=== PATIENT | male | born 1955 | race Caucasian/White ===

== ENCOUNTER 2022-05-05 06:58 | Day surgery (SDC) | payer MEDICARE ==
[2022-04-29 08:30] VITALS: BMI 33.0
[~2022-05-05 06:58] MED LIST: ACETAMINOPHEN TAB 500 MG TAB PO PRN; HEPARIN SODIUM,PORCINE/PF 5,000 UNIT/0.5 ML SYRINGE SQ PRN
[2022-05-05 07:43] VITALS: TEMP 97
[2022-05-05] MEDS ORDERED: ONDANSETRON 4 MG/2 ML VIAL ONE (07:59)
[2022-05-05] MEDS ORDERED: LACTATED RINGERS 1,000 ML IV ONE ×2 (08:00→09:38)
[2022-05-05] MEDS ORDERED: DEXAMETHASONE SOD PHOSPHATE 4 MG/ML 1 ML VIAL IVP ONE (08:16)
[2022-05-05] MEDS ORDERED: MIDAZOLAM 2 MG/2 ML VIAL IVP ONE (08:18)
[2022-05-05] MEDS ORDERED: fentaNYL (PF) 50 MCG/1 ML VIAL IVP ONE (08:18)
[2022-05-05] MEDS ORDERED: HEPARIN SODIUM,PORCINE 5,000 UNIT/ML 1 ML VIAL SQ ONE (08:22)
--- NOTE | 2022-05-05 08:32 | P.GSHP ---
History of Present Illness H&P Date: 05/05/22 Chief Complaint: Right inguinal hernia This is a 66-year-old male who's developed a large right inguinal hernia. Patient presents today for laparoscopic robotic-assisted repair. Past Medical History Past Medical History: Cancer Additional Past Medical History / Comment(s): hx varicose veins, skin cancer History of Any Multi-Drug Resistant Organisms: None Reported Past Surgical History: Hernia Repair Additional Past Surgical History / Comment(s): left hand finger surgery after injury, had surgery after industrial injury-hit in head, chet cataracts Past Anesthesia/Blood Transfusion Reactions: No Reported Reaction Smoking Status: Never smoker - Past Family History Sister(s) Family Medical History: Cancer Additional Family Medical History / Comment(s): lung Brother(s) Family Medical History: Cancer Additional Family Medical History / Comment(s): pancreatic Father Family Medical History: CVA/TIA Medications and Allergies Home Medications Medication Instructions Recorded Confirmed Type Multivitamins, Thera [Multivitamin 1 tab PO DAILY 04/29/22 05/05/22 History (formulary)] Allergies Allergy/AdvReac Type Severity Reaction Status Date / Time No Known Allergies Allergy Verified 05/05/22 07:40 Surgical - Exam Vital Signs Temp Pulse Resp BP Pulse Ox 97 F L 75 18 143/85 97 05/05/22 07:41 05/05/22 07:41 05/05/22 07:41 05/05/22 07:41 05/05/22 07:41 - General well developed, well nourished, no distress - Eyes PERRL - ENT normal pinna - Neck no masses - Respiratory normal expansion - Cardiovascular Rhythm: regular - Abdomen Abdomen: soft, non tender Hernia: inguinal (Large right inguinal hernia) Assessment and Plan Assessment: Large right inguinal hernia. We'll perform laparoscopic robotic-assisted repair.
[2022-05-05] MEDS ORDERED: PHENYLEPHRINE-0.9% NACL SYG 1,000 MCG/10 ML SYRINGE ONE (08:45)
[2022-05-05] MEDS ORDERED: HYDROmorphone (PF) 1 MG/ML ONE (08:45)
[2022-05-05] MEDS ORDERED: ROCURONIUM 10 MG/ML (5 ML VIAL) IV ONE (08:45)
[2022-05-05] MEDS ORDERED: KETOROLAC 15 MG/ML 1 ML VIAL ONE (08:45)
[2022-05-05] MEDS ORDERED: SUCCINYLCHOLINE CHLORIDE 200 MG/10 ML VIAL IV ONE (08:45)
[2022-05-05] MEDS ORDERED: MIDAZOLAM 2 MG/2 ML VIAL ONE (08:45)
[2022-05-05] MEDS ORDERED: NEOSTIGMINE 1 MG/ML 10 ML VIAL ONE (08:45)
[2022-05-05] MEDS ORDERED: LIDOCAINE 2% INJ 20 MG/ML (2 ML VIAL) ONE (08:45)
[2022-05-05] MEDS ORDERED: PROPOFOL 10 MG/ML 20 ML VIAL IV ONE (08:45)
[2022-05-05] MEDS ORDERED: GLYCOPYRROLATE 0.2 MG/ML 2 ML VIAL ONE (08:45)
[2022-05-05] MEDS ORDERED: fentaNYL (PF) 50 MCG/ML 2 ML AMP ONE (08:45)
[2022-05-05] MEDS ORDERED: ROPIVACAINE 5 MG/ML 30 ML VIAL ONE (08:45)
[2022-05-05 08:53] VITALS: RESP 16
[2022-05-05] MEDS ORDERED: BUPIVACAIN-EPI 0.25%-1:200,000 30 ML VIAL SQ ONE ×2 (09:05→09:11)
--- NOTE | 2022-05-05 09:47 | P.OP ---
Date of Procedure: 05/05/22 Preoperative Diagnosis: Right inguinal hernia Postoperative Diagnosis: Large right inguinal hernia Procedure(s) Performed: Open repair of large right inguinal hernia with Prolene hernia mesh system plug Right cord lipoma excision Anesthesia: [id number] Surgeon: Chirag Aponte Estimated Blood Loss (ml): 5 Pathology: other (Cord lipoma) Condition: stable Disposition: PACU Description of Procedure: DESCRIPTION OF PROCEDURE: The patient was placed in the supine position after receiving adequate anesthesia. Patients groin was prepped and draped in the usual sterile fashion. A standard hernia incision was made and the subcutaneous tissues were divided with electrocautery. The fascia of the external oblique was exposed. A josue the fascia was made with #15 blade. The fascia was then opened with pair of Metzenbaum scissors. A Weitlaner retractor was placed in the wound and the cord structures were grasped and dissected free from the inguinal canal. A rubber Angelica drain was placed around the cord structures. The cord lipoma was dissected free and sent to pathology. The hernial sac was seen on the anterior-medial portion of the cord and this was dissected free from the cord. The hernia sac was then invaginated to the peritoneal cavity. Using blunt finger dissection, the preperitoneal space was dissected and then the Prolene hernial mesh plug was placed into the prepared space. The inferior leaf was expanded. The superior leaf was secured to the pubic tubercle using 2-0 Prolene suture. The lateral portion of the superior leaf was incised and cords tied and secured to the transversalis fascia using 2-0 Prolene suture. Fascia of the external oblique was then closed using #0 Vicryl suture. The Angelica drain was removed. The Scarpas fascia was then closed with 3-0 Vicryl suture and skin was closed with mary beth. The patient tolerated the procedure well.
--- NOTE | 2022-05-05 10:07 | P.ANPRN ---
Procedure Note - Anesthesia - Nerve Block Performed Right Transversus Abdominis Single Time Out Performed: Yes ([id number]) Date of Procedure: 05/05/22 Procedure Start Time: Procedure Stop Time: Location of Patient: PreOp Indication: Acute Post-Operative Pain, Requested by Surgeon Specifically requested for management of pain by DrTiffanie: Chirag Aponte Sedation Type: Sedate with meaningful contact maintained Preparation: Sterile Prep Position: Supine Catheter: None Needle Types: Pajunk Needle Gauge: 21 Ultrasound used to visualize needle placement: Yes Ultrasound used to observe medication spread: Yes Injectate: 0.5% Ropivacaine (see comment for volume) (30cc) Blood Aspirated: No Pain Paresthesia on Injection Noted: No Resistance on Injection: Normal Image Stored and Saved: Yes Events: Uneventful and Well Tolerated
[2022-05-05 10:39] VITALS: BP 137/96; PULSE 53
== END 2022-05-05 11:05 | disposition home or self-care (01) ==
LOC: OR 06:58
PROVIDERS: ATTEND Surgery
DX: K40.91 Unilateral inguinal hernia, without obstruction or gangrene, recurrent (principal); D17.6 Benign lipomatous neoplasm of spermatic cord; G89.18 Other acute postprocedural pain; Z85.828 Personal history of other malignant neoplasm of skin; Z80.1 Family history of malignant neoplasm of trachea, bronchus and lung; Z86.73 Personal history of transient ischemic attack (TIA), and cerebral infarction without residual deficits; Z79.899 Other long term (current) drug therapy; Z80.0 Family history of malignant neoplasm of digestive organs; Z98.890 Other specified postprocedural states
CPT/HCPCS: 49505; 64488; 88302; C1781; J2250; J0330; J1644; J1100; J2710; J0690; J2405; J3010 ×2; J1170; J2795; J1885; J2370; J2704; J2001